=== PATIENT | male | born 1955 | race Two or more races ===

== ENCOUNTER 2024-11-26 14:08 | Emergency (ER) | payer MEDICARE, OTHER ==
[~2024-11-26] VITALS: Ht 188 cm; Wt 79.4 kg
[2024-11-26] MEDS ORDERED: AMOXICILLIN-CLAVUL 875-125MG TABLET ONE (14:50)
[2024-11-26] MEDS: AMOXICILLIN-CLAVUL 875-125MG TABLET PO ONE (14:50)
[2024-11-26] MEDS ORDERED: AMOX-430 PO (14:54)
[2024-11-26] MEDS ORDERED: IBUP-1490 PO (14:54)
[2024-11-26 15:14] VITALS: BP 153/70; TEMP 98.2; O2SAT 96
== END 2024-11-26 15:15 | disposition home or self-care (01) ==
LOC: ER 14:08
DX: K04.7 Periapical abscess without sinus (principal); E05.90 Thyrotoxicosis, unspecified without thyrotoxic crisis or storm
CPT/HCPCS: A4606; A4663